=== PATIENT | male | born 1975 | race Caucasian/White ===

== ENCOUNTER 2017-08-06 17:26 | Emergency (ER) | payer SELFPAY ==
[2017-08-06] MEDS ORDERED: Ketorolac 60 MG/2 ML SDV IM ONE (18:14)
--- NOTE | 2017-08-06 18:17 | EDM.PDOC ---
ED HPI GENERAL MEDICAL PROBLEM - General Chief Complaint: Upper Extremity Injury/Pain Stated Complaint: LT FLAQUITA LINDSEY Time Seen by Provider: 08/06/17 18:05 Source of Information: Reports: Patient History Limitations: Reports: No Limitations - History of Present Illness INITIAL COMMENTS - FREE TEXT/NARRATIVE: HISTORY AND PHYSICAL: History of present illness: [Comes to the ED c/o L shoulder pain. Started yesterday and has worsened over the past 24 hours. Started as a dull ache, but has gradually increased to a sharp pain in his L lateral shoulder w/ any movement of his L arm. Denies radiation of pain into chest, neck, jaw and down L arm. Denies any other aches or pains. No fever or chills, chest pain, SOA or difficulty breathing. Describes pain as a dull ache at rest, is sharp with any movement. Decreased ROM due to pain. Has not taken any medications for his symptoms. SMokes 1-2 packs of cigarettes/day. ] Review of systems: As per history of present illness and below otherwise all systems reviewed and negative. Past medical history: As per history of present illness and as reviewed below otherwise noncontributory. Surgical history: As per history of present illness and as reviewed below otherwise noncontributory. Social history: No reported history of drug or alcohol abuse. Family history: As per history of present illness and as reviewed below otherwise noncontributory. Physical exam: HEENT: Atraumatic, normocephalic. Lungs: Clear to auscultation, breath sounds equal bilaterally. Heart: S1S2, regular. Extremities: Exquisite tenderness w/ point palpation of left AC joint. Pain intensifies with movement of L arm. No symptoms to L elbow or R arm. Is Atraumatic in appearance.Neurovascular unremarkable. Neuro: Awake, alert, oriented. Motor and sensory unremarkable throughout. Exam nonfocal. Therapeutics: [Toradol 60mg IV] Impression: [Left shoulder pain] Plan: [Rx written for diclofenac 50 mg #30 sig 1 by mouth 3 times a day 0 refills.May alternate w/ Tylenol. Toradol given in ER. F/u w/ PCP or orthopedics if not improving. He is in agreement with plan. ] Definitive disposition and diagnosis as appropriate pending reevaluation and review of above. Left Upper Arm Pain Score (Numeric/FACES): 6 - Related Data Allergies Allergy/AdvReac Type Severity Reaction Status Date / Time No Known Allergies Allergy Verified 08/06/17 17:46 Home Meds: Home Meds . [No Known Home Meds] 08/06/17 [History] Past Medical History - Past Health History Medical/Surgical History: Denies Medical/Surgical History Gastrointestinal History: Reports: GERD - Past Surgical History GI Surgical History: Reports: Other (See Below) Other GI Surgeries/Procedures: GERD surgery Social & Family History - Family History Family Medical History: Noncontributory - Tobacco Use Smoking Status *Q: Current Every Day Smoker Years of Tobacco use: 12 Packs/Tins Daily: 2 - Caffeine Use Caffeine Use: Reports: None - Recreational Drug Use Recreational Drug Use: No Review of Systems - Review of Systems Review Of Systems: ROS reveals no pertinent complaints other than HPI. ED EXAM, GENERAL - Physical Exam Exam: See Below Course - Vital Signs Last Recorded V/S: Last Vital Signs Temp 98.3 F 08/06/17 18:54 Pulse 112 H 08/06/17 18:54 Resp 18 08/06/17 18:54 BP 141/88 H 08/06/17 18:54 Pulse Ox 93 L 08/06/17 18:54 - Orders/Labs/Meds Meds: Medications Discontinued Medications Generic Name Dose Route Start Last Admin Trade Name Yamini PRN Reason Stop Dose Admin Ketorolac Tromethamine 60 mg 08/06/17 18:14 08/06/17 18:33 Toradol IM 08/06/17 18:15 60 mg ONETIME ONE Administration Departure - Departure Time of Disposition: 18:20 Disposition: Home, Self-Care 01 Condition: Good Clinical Impression: Left shoulder pain - Discharge Information Instructions: Shoulder Pain, [id number] Referrals: PCP,None [Primary Care Provider] - Forms: ED Department Discharge Additional Instructions: The following information is given to patients seen in the emergency department who are being discharged to home. This information is to outline your options for follow-up care. We provide all patients seen in our emergency department with a follow-up referral. The need for follow-up, as well as the timing and circumstances, are variable depending upon the specifics of your emergency department visit. If you don't have a primary care physician on staff, we will provide you with a referral. We always advise you to contact your personal physician following an emergency department visit to inform them of the circumstance of the visit and for follow-up with them and/or the need for any referrals to a consulting specialist. The emergency department will also refer you to a specialist when appropriate. This referral assures that you have the opportunity for follow-up care with a specialist. All of these measure are taken in an effort to provide you with optimal care, which includes your follow-up. Under all circumstances we always encourage you to contact your private physician who remains a resource for coordinating your care. When calling for follow-up care, please make the office aware that this follow-up is from your recent emergency room visit. If for any reason you are refused follow-up, please contact the [facility] emergency department at and asked to speak to the emergency department charge nurse. [facility] [address] [place] [id number] Follow-up with your local primary care provider or establish at the clinic listed above and follow-up there in 48-72 hours. Take medication as prescribed. You may alternate the diclofenac with Tylenol. Ice pack may also help. Gentle stretching exercises. Return to ER as needed as discussed.
== END 2017-08-06 18:52 | disposition home or self-care (01) ==
LOC: MW.ED 17:26
DX: M25.512 Pain in left shoulder (principal); F17.210 Nicotine dependence, cigarettes, uncomplicated
CPT/HCPCS: 96372; 99283; J1885